=== PATIENT | male | born 1935 | race Caucasian/White ===

== ENCOUNTER 2017-09-03 06:16 | Day surgery (SDC) | payer MEDICARE ==
[~2017-09-03] VITALS: Ht 180.3 cm; Wt 104.3 kg
[~2017-09-03 06:16] MED LIST: ALLO300T2 PO; CLOP75TA14 PO; CYAN100T PO; GLUC-145 PO; OLME40TA8 PO; ROSU20TA PO; SODIUM CHLORIDE 0.9% 1000ML 1,000 ML IV ONE
[2017-09-03 06:37] VITALS: BP 152/75
[2017-09-03] MEDS ORDERED: PROPOFOL 10 MG/ML 20ML VIAL IV ONE (07:25)
[2017-09-03 07:42] VITALS: BP 147/69
== END 2017-09-03 08:14 | disposition home or self-care (01) ==
LOC: DAH 06:16 → ENDO 06:16
PROVIDERS: ATTEND Internal Medicine Gastroenterology
DX: K57.30 Diverticulosis of large intestine without perforation or abscess without bleeding (principal); I10 Essential (primary) hypertension; N40.0 Benign prostatic hyperplasia without lower urinary tract symptoms; M10.9 Gout, unspecified; I25.10 Atherosclerotic heart disease of native coronary artery without angina pectoris; E66.9 Obesity, unspecified; Z68.32 Body mass index [BMI] 32.0-32.9, adult; Z98.890 Other specified postprocedural states; Z79.899 Other long term (current) drug therapy; Z88.0 Allergy status to penicillin
CPT/HCPCS: 45378; 93005; A4606; J2704; J7030

== ENCOUNTER → 2019-09-07 | Outpatient (CLI) | payer MEDICARE ==
[~2019-09-07] MED LIST changes: -CYAN100T PO; +CYAN100T3 PO; -ROSU20TA PO; +ROSU20TA23 PO; -SODIUM CHLORIDE 0.9% 1000ML 1,000 ML IV ONE
== END | disposition home or self-care (01) ==
LOC: CANPRECLI → RAH 08:54
PROVIDERS: ATTEND Internal Medicine Gastroenterology
DX: K62.1 Rectal polyp (principal); M47.817 Spondylosis without myelopathy or radiculopathy, lumbosacral region; I87.8 Other specified disorders of veins
CPT/HCPCS: 74018

== ENCOUNTER 2019-12-16 07:06 | Day surgery (SDC) | payer MEDICARE ==
[~2019-12-16] VITALS: Ht 182.9 cm; Wt 109.3 kg
[2019-12-16 07:30] VITALS: BP 159/76; PULSE 56; RESP 18; TEMP 97.3
[2019-12-16] MEDS ORDERED: SODIUM CHLORIDE 0.9% 1000ML 1,000 ML IV ONE (09:10)
[2019-12-16] MEDS ORDERED: PROPOFOL 10 MG/ML 20ML VIAL IV ONE (09:22)
[2019-12-16] MEDS ORDERED: GLYCOPYRROLATE 0.2 MG/ML 5 ML VIAL ONE (09:23)
[2019-12-16 09:57] VITALS: BP 107/58; PULSE 56; RESP 20; TEMP 97.6
[2019-12-16 10:04] VITALS: BP 103/59; PULSE 60; RESP 20
[2019-12-16 10:09] VITALS: BP 116/64; PULSE 57; RESP 20
[2019-12-16 10:16] VITALS: BP 134/71; PULSE 62; RESP 20
== END 2019-12-16 10:25 | disposition home or self-care (01) ==
LOC: DAH 07:06 → ENDO 07:06
PROVIDERS: ATTEND Internal Medicine Gastroenterology
DX: R19.7 Diarrhea, unspecified (principal); Z11.59 Encounter for screening for other viral diseases; K29.50 Unspecified chronic gastritis without bleeding; I10 Essential (primary) hypertension; I25.10 Atherosclerotic heart disease of native coronary artery without angina pectoris; E78.5 Hyperlipidemia, unspecified; M10.9 Gout, unspecified; Z88.0 Allergy status to penicillin; Z98.890 Other specified postprocedural states; Z79.899 Other long term (current) drug therapy; Z79.82 Long term (current) use of aspirin; Z87.891 Personal history of nicotine dependence; Z72.89 Other problems related to lifestyle
CPT/HCPCS: 43237; 43239; 88305; 88342; 93005; A4215 ×2; A4221; A4222; A4223; A4606; A4620; A4657; A4663; J2704; J3490; J7030; U0003